=== PATIENT | male | born 1990 | race Caucasian/White ===

== ENCOUNTER 2017-02-15 19:31 | Emergency (ER) | payer BC ==
[~2017-02-15 19:31] MED LIST: NO HOME MEDICATIONS; TAMIFLU75 MG PO
[2017-02-15 22:13] VITALS: BP 135/84
== END 2017-02-15 22:13 | disposition home or self-care (01) ==
LOC: ED 19:31
DX: F41.9 Anxiety disorder, unspecified (principal); R00.2 Palpitations; R53.81 Other malaise; R53.83 Other fatigue; F43.9 Reaction to severe stress, unspecified

== ENCOUNTER 2018-04-07 03:24 | Emergency (ER) | payer MEDICAID ==
[~2018-04-07] VITALS: Ht 188 cm; Wt 81.8 kg
[2018-04-07] MEDS ORDERED: BACTRIM DS TAB1 EACH PO (03:55)
[2018-04-07 04:04] VITALS: BP 128/75
== END 2018-04-07 04:04 | disposition home or self-care (01) ==
LOC: ED 03:24
DX: L02.213 Cutaneous abscess of chest wall (principal); F17.210 Nicotine dependence, cigarettes, uncomplicated

== ENCOUNTER 2018-09-27 10:45 | Emergency (ER) | payer MEDICAID ==
[~2018-09-27] VITALS: Ht 188 cm; Wt 81.8 kg
[~2018-09-27 10:45] MED LIST changes: +BACTRIM DS TAB1 EACH PO
[2018-09-27 13:29] VITALS: BP 100/69
== END 2018-09-27 12:48 | disposition home or self-care (01) ==
LOC: ED 10:45
DX: M25.511 Pain in right shoulder (principal); W18.39XA Other fall on same level, initial encounter; Y99.0 Civilian activity done for income or pay; F17.200 Nicotine dependence, unspecified, uncomplicated

== ENCOUNTER 2018-09-29 19:32 | Emergency (ER) | payer MEDICAID ==
[~2018-09-29] VITALS: Ht 188 cm; Wt 79.5 kg
[2018-09-29 20:30] VITALS: BP 110/76
== END 2018-09-29 20:30 | disposition home or self-care (01) ==
LOC: ED 19:32
DX: K21.9 Gastro-esophageal reflux disease without esophagitis (principal); F17.200 Nicotine dependence, unspecified, uncomplicated; Z20.818 Contact with and (suspected) exposure to other bacterial communicable diseases

== ENCOUNTER 2018-11-02 22:45 | Emergency (ER) | payer MEDICAID ==
[~2018-11-02] VITALS: Ht 188 cm; Wt 81.8 kg
[2018-11-02 23:57] VITALS: BP 121/82
[2018-11-03] MEDS ORDERED: PRILOSEC 20MG20 MG PO (01:30)
[2018-11-03] MEDS ORDERED: ZOFRAN4 M2 PO (01:30)
[2018-11-03] MEDS ORDERED: IBU600 MG PO (01:30)
== END 2018-11-03 01:36 | disposition home or self-care (01) ==
LOC: ED 22:45
DX: A08.4 Viral intestinal infection, unspecified (principal); R07.9 Chest pain, unspecified; F17.210 Nicotine dependence, cigarettes, uncomplicated; Z90.49 Acquired absence of other specified parts of digestive tract
CPT/HCPCS: J1885

== ENCOUNTER 2018-11-22 02:05 | Emergency (ER) | payer MEDICAID ==
[~2018-11-22 02:05] MED LIST changes: +IBU600 MG PO; +PRILOSEC 20MG20 MG PO; +ZOFRAN4 M2 PO
[2018-11-22 02:20] VITALS: BP 123/79
== END 2018-11-22 02:32 | disposition home or self-care (01) ==
LOC: ED 02:05
DX: S80.02XA Contusion of left knee, initial encounter (principal); F41.9 Anxiety disorder, unspecified; F17.210 Nicotine dependence, cigarettes, uncomplicated; Z90.49 Acquired absence of other specified parts of digestive tract

== ENCOUNTER 2018-11-29 18:03 | Emergency (ER) | payer MEDICAID ==
[~2018-11-29] VITALS: Ht 188 cm; Wt 77.3 kg
[2018-11-29 18:42] LABS: EOS # 0.2 (0.04-0.40); EOS % 1.9 % (0.0-4.0); HEMATOCRIT 46.9 % (42.0-52.0); HEMOGLOBIN 15.4 g/dL (13.5-18.0); LYMPH# 2.2 (1.50-4.00); MEAN CELL VOLUME 88 fl (78-100); MEAN CORPUSCULAR HEMOGLOBIN 29 pg (27-31); MEAN CORPUSCULAR HGB CONC 33 g/dL (33-37); MEAN PLATELET VOLUME 9.8 fl (7.4-10.4); NEU # 5.2 (1.40-6.50); PLATELET COUNT 272 K/mm3 (130-400); RED BLOOD COUNT 5.34 M/mm3 (4.20-5.60); RED CELL DISTRIBUTION WIDTH 12.5 % (11.5-14.5); WHITE BLOOD COUNT 8.6 K/mm3 (4.8-10.8)
[2018-11-29 18:51] LABS: POTASSIUM 4.1 mmol/L (3.6-5.0)
[2018-11-29 19:10] LABS: URINE APPEARANCE HAZY; URINE COLOR YELLOW
[2018-11-29 19:11] LABS: URINE BILIRUBIN NEGATIVE (NEGATIVE); URINE BLOOD NEGATIVE (NEGATIVE); URINE GLUCOSE NEGATIVE (NEGATIVE); URINE KETONE NEGATIVE (NEGATIVE); URINE LEUKOCYTE ESTERASE NEGATIVE (NEGATIVE); URINE MUCUS PRESENT (NOT PRESENT); URINE NITRATE NEGATIVE (NEGATIVE); URINE PROTEIN(semi-quant) TRACE mg/dL (NEGATIVE); URINE UROBILINOGEN NORMAL (NORMAL)
[2018-11-29 19:24] VITALS: BP 117/71
== END 2018-11-29 19:24 | disposition home or self-care (01) ==
LOC: ED 18:03
PROVIDERS: Physician Assistant
DX: R53.81 Other malaise (principal); F17.210 Nicotine dependence, cigarettes, uncomplicated; Z90.49 Acquired absence of other specified parts of digestive tract

== ENCOUNTER 2019-01-05 00:34 | Emergency (ER) | payer MEDICAID ==
[2019-01-05 01:09] VITALS: BP 118/75
== END 2019-01-05 01:10 | disposition home or self-care (01) ==
LOC: ED 00:34
DX: K21.9 Gastro-esophageal reflux disease without esophagitis (principal); F41.9 Anxiety disorder, unspecified; F17.210 Nicotine dependence, cigarettes, uncomplicated; Z90.49 Acquired absence of other specified parts of digestive tract

== ENCOUNTER 2019-01-24 02:23 | Emergency (ER) | payer MEDICAID ==
[~2019-01-24] VITALS: Ht 188 cm; Wt 79.5 kg
[2019-01-24 03:55] LABS: BASO # 0.1 (0.02-0.10); EOS # 0.2 (0.04-0.40); EOS % 1.7 % (0.0-4.0); HEMATOCRIT 44.6 % (42.0-52.0); HEMOGLOBIN 14.8 g/dL (13.5-18.0); LYMPH# 3.6 (1.50-4.00); MEAN CELL VOLUME 86 fl (78-100); MEAN CORPUSCULAR HEMOGLOBIN 29 pg (27-31); MEAN CORPUSCULAR HGB CONC 33 g/dL (33-37); MEAN PLATELET VOLUME 9.3 fl (7.4-10.4); MONO # 1.2 (0.20-0.80); NEU # 6.5 (1.40-6.50); PLATELET COUNT 352 K/mm3 (130-400); RED BLOOD COUNT 5.16 M/mm3 (4.20-5.60); RED CELL DISTRIBUTION WIDTH 13.1 % (11.5-14.5); WHITE BLOOD COUNT 11.6 K/mm3 (4.8-10.8)
[2019-01-24 03:59] LABS: ALBUMIN 4.4 g/dL (3.5-5.0); CALCIUM 9.6 mg/dL (8.4-10.2); POTASSIUM 3.6 mmol/L (3.6-5.0); TOTAL BILIRUBIN 0.5 mg/dL (0.2-1.3); TOTAL PROTEIN 7.4 g/dL (6.3-8.2)
[2019-01-24 04:13] LABS: PH-URINE 5.5 (5.0 - 8.0); URINE APPEARANCE HAZY; URINE BILIRUBIN NEGATIVE (NEGATIVE); URINE BLOOD TRACE (NEGATIVE); URINE COLOR YELLOW; URINE GLUCOSE NEGATIVE (NEGATIVE); URINE KETONE NEGATIVE (NEGATIVE); URINE LEUKOCYTE ESTERASE NEGATIVE (NEGATIVE); URINE NITRATE NEGATIVE (NEGATIVE); URINE PROTEIN(semi-quant) NEGATIVE (NEGATIVE); URINE UROBILINOGEN NORMAL (NORMAL); URINE WBC 0-1 /hpf (0-3)
[2019-01-24 04:14] LABS: URINE MUCUS PRESENT (NOT PRESENT)
[2019-01-24 04:16] LABS: D-DIMER 0.25 mg/L FEU (0.15-0.50)
[2019-01-24 04:55] VITALS: BP 108/67
== END 2019-01-24 04:55 | disposition home or self-care (01) ==
LOC: ED 02:23
PROVIDERS: Nurse Practitioner Family
DX: F43.0 Acute stress reaction (principal); F41.9 Anxiety disorder, unspecified; K21.9 Gastro-esophageal reflux disease without esophagitis; F17.210 Nicotine dependence, cigarettes, uncomplicated; Z90.49 Acquired absence of other specified parts of digestive tract

== ENCOUNTER 2019-04-24 02:01 | Emergency (ER) | payer MEDICAID ==
[2019-04-24 02:58] LABS: BASO # 0.1 (0.02-0.10); EOS # 0.2 (0.04-0.40); EOS % 1.9 % (0.0-4.0); HEMATOCRIT 46.8 % (42.0-52.0); HEMOGLOBIN 15.6 g/dL (13.5-18.0); LYMPH# 2.8 (1.50-4.00); MEAN CELL VOLUME 87 fl (78-100); MEAN CORPUSCULAR HEMOGLOBIN 29 pg (27-31); MEAN CORPUSCULAR HGB CONC 33 g/dL (33-37); MEAN PLATELET VOLUME 9.4 fl (7.4-10.4); NEU # 4.8 (1.40-6.50); PLATELET COUNT 299 K/mm3 (130-400); RED BLOOD COUNT 5.37 M/mm3 (4.20-5.60); RED CELL DISTRIBUTION WIDTH 12.8 % (11.5-14.5); WHITE BLOOD COUNT 8.8 K/mm3 (4.8-10.8)
[2019-04-24 03:10] LABS: ALBUMIN 4.2 g/dL (3.5-5.0)
[2019-04-24 03:11] LABS: POTASSIUM 3.8 mmol/L (3.5-5.1)
[2019-04-24 03:12] LABS: CALCIUM 9.3 mg/dL (8.3-10.5)
[2019-04-24 03:13] LABS: URINE APPEARANCE CLEAR; URINE BILIRUBIN NEGATIVE (NEGATIVE); URINE BLOOD NEGATIVE (NEGATIVE); URINE COLOR YELLOW; URINE GLUCOSE NEGATIVE (NEGATIVE); URINE KETONE NEGATIVE (NEGATIVE); URINE LEUKOCYTE ESTERASE NEGATIVE (NEGATIVE); URINE MUCUS PRESENT (NOT PRESENT); URINE NITRATE NEGATIVE (NEGATIVE); URINE PROTEIN(semi-quant) TRACE mg/dL (NEGATIVE); URINE UROBILINOGEN NORMAL (NORMAL); URINE WBC 0-1 /hpf (0-3)
[2019-04-24 03:15] LABS: TOTAL BILIRUBIN 0.7 mg/dL (0.2-1.2)
[2019-04-24] MEDS ORDERED: ZOFRAN4 M2 PO (03:25)
[2019-04-24 03:33] VITALS: BP 112/68
== END 2019-04-24 03:34 | disposition home or self-care (01) ==
LOC: ED 02:01
PROVIDERS: Nurse Practitioner
DX: B34.9 Viral infection, unspecified (principal); F41.9 Anxiety disorder, unspecified; K21.9 Gastro-esophageal reflux disease without esophagitis; F17.210 Nicotine dependence, cigarettes, uncomplicated; Z90.49 Acquired absence of other specified parts of digestive tract

== ENCOUNTER 2019-05-11 01:36 | Emergency (ER) | payer MEDICAID ==
[2019-05-11 02:14] VITALS: BP 118/74
== END 2019-05-11 02:14 | disposition home or self-care (01) ==
LOC: ED 01:36
DX: B34.9 Viral infection, unspecified (principal); F41.0 Panic disorder [episodic paroxysmal anxiety]; Z90.49 Acquired absence of other specified parts of digestive tract

== ENCOUNTER → 2019-05-31 | Outpatient (CLI) | payer SELFPAY ==
[2019-05-11 02:14] VITALS: BP 118/74
[2019-05-31 08:32] LABS: BASO # 0.1 (0.02-0.10); EOS # 0.3 (0.04-0.40); EOS % 3.4 % (0.0-4.0); HEMATOCRIT 48.9 % (42.0-52.0); HEMOGLOBIN 16.1 g/dL (13.5-18.0); LYMPH# 3.1 (1.50-4.00); MEAN CELL VOLUME 88 fl (78-100); MEAN CORPUSCULAR HEMOGLOBIN 29 pg (27-31); MEAN CORPUSCULAR HGB CONC 33 g/dL (33-37); MEAN PLATELET VOLUME 9.6 fl (7.4-10.4); MONO # 0.9 (0.20-0.80); NEU # 4.9 (1.40-6.50); PLATELET COUNT 313 K/mm3 (130-400); RED BLOOD COUNT 5.58 M/mm3 (4.20-5.60); RED CELL DISTRIBUTION WIDTH 12.8 % (11.5-14.5); WHITE BLOOD COUNT 9.3 K/mm3 (4.8-10.8)
[2019-05-31 08:42] LABS: POTASSIUM 4.1 mmol/L (3.5-5.1)
[2019-05-31 08:43] LABS: CALCIUM 9.6 mg/dL (8.3-10.5)
== END ==
LOC: LAB 08:21
PROVIDERS: Physician Assistant
DX: R30.0 Dysuria (principal); R53.81 Other malaise

== ENCOUNTER 2019-07-29 04:21 | Emergency (ER) | payer MEDICAID ==
[~2019-07-29] VITALS: Ht 188 cm; Wt 79.5 kg
[2019-07-29 05:03] LABS: BASO # 0.1 (0.02-0.10); EOS # 0.3 (0.04-0.40); EOS % 3.8 % (0.0-4.0); HEMOGLOBIN 14.7 g/dL (13.5-18.0); LYMPH# 2.9 (1.50-4.00); MEAN CELL VOLUME 87 fl (78-100); MEAN CORPUSCULAR HEMOGLOBIN 29 pg (27-31); MEAN CORPUSCULAR HGB CONC 33 g/dL (33-37); MEAN PLATELET VOLUME 9.6 fl (7.4-10.4); MONO # 0.9 (0.20-0.80); NEU # 4.2 (1.40-6.50); PLATELET COUNT 282 K/mm3 (130-400); RED BLOOD COUNT 5.07 M/mm3 (4.20-5.60); RED CELL DISTRIBUTION WIDTH 12.9 % (11.5-14.5); WHITE BLOOD COUNT 8.4 K/mm3 (4.8-10.8)
[2019-07-29 05:23] LABS: POTASSIUM 3.8 mmol/L (3.5-5.1)
[2019-07-29 05:25] LABS: CALCIUM 9.2 mg/dL (8.3-10.5)
[2019-07-29 05:26] LABS: TOTAL PROTEIN 6.7 g/dL (6.4-8.3)
[2019-07-29 05:28] LABS: TOTAL BILIRUBIN 0.3 mg/dL (0.2-1.2)
[2019-07-29 05:43] LABS: URINE APPEARANCE CLEAR; URINE COLOR YELLOW; URINE PROTEIN(semi-quant) TRACE mg/dL (NEGATIVE)
[2019-07-29 05:44] LABS: URINE BILIRUBIN NEGATIVE (NEGATIVE); URINE BLOOD NEGATIVE (NEGATIVE); URINE GLUCOSE NEGATIVE (NEGATIVE); URINE KETONE NEGATIVE (NEGATIVE); URINE LEUKOCYTE ESTERASE TRACE (NEGATIVE); URINE NITRATE NEGATIVE (NEGATIVE); URINE UROBILINOGEN NORMAL (NORMAL); URINE WBC 0-1 /hpf (0-3)
[2019-07-29 05:45] LABS: URINE MUCUS PRESENT (NOT PRESENT)
[2019-07-29 07:20] VITALS: BP 123/73
== END 2019-07-29 07:20 | disposition home or self-care (01) ==
LOC: ED 04:21
PROVIDERS: Family Medicine
DX: F41.0 Panic disorder [episodic paroxysmal anxiety] (principal); F17.210 Nicotine dependence, cigarettes, uncomplicated

== ENCOUNTER 2019-08-02 19:04 | Emergency (ER) | payer MEDICAID ==
[2019-08-02 21:45] VITALS: BP 106/74
== END 2019-08-02 21:45 | disposition home or self-care (01) ==
LOC: ED 19:04
DX: K21.9 Gastro-esophageal reflux disease without esophagitis (principal); K30 Functional dyspepsia; F41.0 Panic disorder [episodic paroxysmal anxiety]; F17.210 Nicotine dependence, cigarettes, uncomplicated; Z90.49 Acquired absence of other specified parts of digestive tract; Z98.890 Other specified postprocedural states

== ENCOUNTER 2019-09-15 16:22 | Emergency (ER) | payer MEDICAID ==
[~2019-09-15] VITALS: Ht 188 cm; Wt 77.3 kg
[2019-09-15 18:19] VITALS: BP 104/80
== END 2019-09-15 18:23 | disposition home or self-care (01) ==
LOC: ED 16:22
DX: F41.0 Panic disorder [episodic paroxysmal anxiety] (principal); K21.9 Gastro-esophageal reflux disease without esophagitis; F17.210 Nicotine dependence, cigarettes, uncomplicated; Z90.49 Acquired absence of other specified parts of digestive tract; Z98.890 Other specified postprocedural states
CPT/HCPCS: J2060